=== PATIENT | female | born 1955 | race Caucasian/White ===

== ENCOUNTER → 2017-01-02 | Outpatient (CLI) | payer OTHER ==
--- NOTE | 2017-01-02 12:54 | XR ---
EXAMINATION TYPE: XR ankle complete RT DATE OF EXAM: 01/02/2017 12:16 PM CLINICAL HISTORY: Twisting fall injury one week ago with pain swelling and bruising along lateral asp ect at time of injury and persistent pain now. TECHNIQUE: Frontal, lateral and oblique images of the right ankle are obtained. COMPARISON: None. FINDINGS: There is no acute fracture/dislocation evident in the right ankle. The ankle mortise appe ars within normal limits. The overlying soft tissue appears unremarkable. IMPRESSION: There is no acute fracture or dislocation in the right ankle.
== END | disposition home or self-care (01) ==
LOC: RADXRMAIN 11:48
PROVIDERS: ATTEND Family Medicine
DX: M25.571 Pain in right ankle and joints of right foot (principal)

== ENCOUNTER 2017-08-18 21:30 | Emergency (ER) | payer OTHER ==
[2017-08-18 21:39] VITALS: RESP 18; TEMP 97.4
--- NOTE | 2017-08-18 21:52 | ED ---
General Adult HPI - General Chief complaint: Extremity Problem,Nontraumatic Stated complaint: Foot Pain Time Seen by Provider: 08/18/17 21:42 Source: patient, RN notes reviewed Mode of arrival: wheelchair Limitations: no limitations - History of Present Illness Initial comments: 62 yo female presents to the ER with cc of left foot pain. Patient states her left foot has been bothering her for the last week or so. Patient states that she stepped out of her today and she felt staff. Patient states that her toes and between the first and second digit. Patient states that she has no other pain with this. She has no small cyst on her foot as well. Patient denies any falls traumas or injuries. She states she has never had walker. Patient was concerned due to her symptoms so she thought that she should be evaluated. Patient denies any recent fever, chills, shortness of breath, chest pain, back pain, abdominal pain, nausea vomiting, numbness or tingling, dysuria or hematuria, constipation or diarrhea, headaches or visual changes, or any other current symptoms. - Related Data Home Medications Medication Instructions Recorded Confirmed No Known Home Medications [No 08/18/17 08/18/17 Known Home Medications] Allergies Allergy/AdvReac Type Severity Reaction Status Date / Time Penicillins Allergy Rash/Hives Verified 08/18/17 21:39 Sulfa (Sulfonamide Allergy Rash/Hives Verified 08/18/17 21:39 Antibiotics) Review of Systems ROS Statement: Those systems with pertinent positive or pertinent negative responses have been documented in the HPI. ROS Other: All systems not noted in ROS Statement are negative. Past Medical History Past Medical History: No Reported History History of Any Multi-Drug Resistant Organisms: None Reported Past Surgical History: Appendectomy, Hysterectomy, Tonsillectomy Past Psychological History: No Psychological Hx Reported Smoking Status: Never smoker Past Alcohol Use History: Rare Past Drug Use History: None Reported General Exam - General Exam Comments Initial Comments: General: The patient is awake and alert, in no distress, and does not appear acutely ill. Neck: The neck is supple, there is no tenderness. Cardiovascular: There is a regular rate and rhythm. No murmur, rub or gallop is appreciated. Respiratory: Lungs are clear to auscultation, respirations are non-labored, breath sounds are equal. No wheezes, stridor, rales, or rhonchi. Musculoskeletal: Sensation intact with 2+ pulses throughout the left flexion. Frontal motion of left foot. Tenderness between the first and second digit. There is a small cyst to the bottom of left foot. No swelling or deformity noted. Neurological: CN II-XII intact, There are no obvious motor or sensory deficits. Coordination appears grossly intact. Speech is normal. Skin: Skin is warm and dry and no rashes or lesions are noted. Psychiatric: Normal mood and affect. Limitations: no limitations Course Vital Signs 08/18/17 21:35 Temperature 97.4 F L Pulse Rate 101 H Respiratory 18 Rate Blood Pressure 188/85 O2 Sat by Pulse 100 Oximetry Medical Decision Making - Medical Decision Making 62-year-old female presents for left foot injury. This time x-ray results are reviewed. At this time we did discuss care of this. Discussed follow-up. Return parameters outpatient family's questions. They stated the Henrry management plan. All questions have been answered. They'll be discharged. - Radiology Data Radiology results: report reviewed, image reviewed Disposition Clinical Impression: Left foot pain Disposition: HOME SELF-CARE Condition: Stable Instructions: Arthralgia (ED) Additional Instructions: Please use medication as discussed. Please follow up with family doctor if symptoms have not improved over the next two days. Please return to the emergency room if your symptoms increase or worsen or for any other concerns. Referrals: Champ Syed DO [Primary Care Provider] - 1-2 days Eric Dunn MD [Medical Doctor] - 1-2 days Time of Disposition: 22:21
--- NOTE | 2017-08-18 22:02 | XR ---
EXAMINATION TYPE: XR foot complete LT DATE OF EXAM: 08/18/2017 CLINICAL HISTORY: Left foot pain, history of stress fracture. TECHNIQUE: Frontal, lateral, and oblique images of the left foot are obtained. COMPARISON: None FINDINGS: There is no acute fracture/dislocation evident in the left foot. Osseous structures are so mewhat demineralized. Some flexion in second through fifth toes is present. There is hallux valgus po sitioning first metatarsophalangeal joint. The overlying soft tissue appears unremarkable. IMPRESSION: There is no acute fracture or dislocation in the left foot.
[2017-08-18 22:26] VITALS: BP 170/79; PULSE 96
== END 2017-08-18 22:26 | disposition home or self-care (01) ==
LOC: EC 21:30
DX: M79.672 Pain in left foot (principal); Z88.0 Allergy status to penicillin; Z88.2 Allergy status to sulfonamides
CPT/HCPCS: 99283

== ENCOUNTER → 2017-12-24 | Outpatient (CLI) | payer OTHER ==
--- NOTE | 2017-12-24 10:41 | BD ---
EXAMINATION TYPE: MG DEXA axial skeleton. DATE OF EXAM: 12/24/2017 COMPARISON: Prior DEXA bone scan March 28, 2015 CLINICAL HISTORY: Postmenopausal female with known osteopenia Height: 67 Weight: 146.3 FRAX RISK QUESTIONS: Alcohol (3 or more units per day): no Family History (Parent hip fracture): no Glucocorticoids (More than 3mos): no (Ex: prednisone, prednisolone, methylprednisolone, dexamethasone, and hydrocortisone). History of Fracture in Adulthood: no Secondary Osteoporosis: 1. Type 1 Diabetes: no 2. Hyperthyroidism: no 3. Menopause before 45: no 4. Malnutrition: no 5. Chronic liver disease: no Rheumatoid Arthritis: no Current Tobacco Use: no RISK FACTORS HISTORY OF: Surgery to Spine/Hip(right/left)/Wrist (right/left): no Family History of Osteoporosis: yes Active: yes Diet low in dairy products/other sources of calcium: no Postmenopausal woman: hysterectomy age 48 Lost more than 2 inches in height since high school: no Frequent falls: no Poor Health: no Hyperparathyroidism: no Adrenal Insufficiency: no MEDICATIONS: beta lilli Additional History: EXAM MEASUREMENTS: Bone mineral densitometry was performed using the [employer] System. Bone mineral density as measured about the Lumbar spine is: ----- L1-L4(G/cm2): 1.095 T Score Values are as follows: ----- L2: -1.1 ----- L3: -0.6 ----- L4: -0.2 ----- L1-L4: -0.7 Bone mineral density has: increased 1.6% since study of: 03.28.2015 Bone mineral density about the R hip (g/cm2): 0.912 Bone mineral density about the L hip (g/cm2): 0.856 T Score values are as follows: -----R Neck: -0.9 -----L Neck: -1.3 -----R Total: -1.2 -----L Total: -1.2 Bone mineral density has: decreased -1.3 % since study of: 03.28.2015 IMPRESSION: Osteopenia (T Score between -2.5 and -1 as noted by T score values persists in both hips. Bone densit y fairly stable from prior. There remains slightly increased risk of fracture and the patient may be considered for treatment. Re-Screen 2-5 years. NOTE: T-SCORE=SD OF THE YOUNG ADULT MEAN.
--- NOTE | 2017-12-25 09:16 | MM ---
Reason for exam: screening (asymptomatic). Last mammogram was performed 2 years and 9 months ago. History: Patient is postmenopausal. Family history of breast cancer in paternal aunt. Benign excisional biopsy of the left breast, 1998. Took estrogen for 2 years beginning at age 48. Physical Findings: A clinical breast exam by your physician is recommended on an annual basis and results should be correlated with mammographic findings. MG 3D Screening Mammo W/Cad Bilateral CC and MLO view(s) were taken. Prior study comparison: March 28, 2015, bilateral MG screening mammo w CAD. July 07, 2013, bilateral digital screening mammo w/CAD. The breast tissue is heterogeneously dense. This may lower the sensitivity of mammography. There is no discrete abnormality. No significant changes when compared with prior studies. ASSESSMENT: Negative, BI-RAD 1 RECOMMENDATION: Routine screening mammogram of both breasts in 1 year.
== END | disposition home or self-care (01) ==
LOC: RADMAMWWP 09:31
PROVIDERS: ATTEND Family Medicine
DX: Z12.31 Encounter for screening mammogram for malignant neoplasm of breast (principal); M85.852 Other specified disorders of bone density and structure, left thigh; M85.851 Other specified disorders of bone density and structure, right thigh
CPT/HCPCS: 77063; 77067; 77080

== ENCOUNTER 2018-02-05 09:31 | Day surgery (SDC) | payer OTHER ==
[2018-02-03 09:09] VITALS: BMI 23.1
[~2018-02-05 09:31] MED LIST: LACTATED RINGERS 1,000 ML IV SCH
[2018-02-05 10:42] VITALS: TEMP 97.6
[2018-02-05] MEDS ORDERED: MIDAZOLAM 2 MG/2 ML VIAL IVP ONE (11:05)
[2018-02-05] MEDS ORDERED: LIDOCAINE 1% INJ 10MG/ML (20 ML MDV) ONE (11:25)
[2018-02-05] MEDS ORDERED: PROPOFOL 10 MG/ML 20 ML VIAL IV ONE (11:25)
--- NOTE | 2018-02-05 11:45 | P.PCN ---
Date of Procedure: 02/05/18 Procedure(s) Performed: BRIEF HISTORY: Patient is a 62-year-old pleasant white female, scheduled for an elective colonoscopy as a part of screening for colon neoplasia. She has family history of colon cancer diagnosed in her brother at age 50 and maternal aunt. PROCEDURE PERFORMED: Colonoscopy with snare polypectomy. PREOPERATIVE DIAGNOSIS: Screening for colon cancer/family history of colon cancer. IV sedation per Anesthesia. PROCEDURE: After informed consent was obtained, the patient, was brought into the endoscopy unit. IV sedation was administered by Anesthesia under continuous monitoring. Digital rectal examination was normal. Initially the Olympus CF- 160 flexible video colonoscope was then inserted in the rectum, gradually advanced into the cecum without any difficulty. Careful examination was performed as the scope was gradually being withdrawn. Ileocecal valve and the appendiceal orifice were visualized and appeared normal. Prep was excellent. Mucosa of the cecum, ascending colon, appeared normal. In the proximal transverse colon there was a 1 m flat polyp that was removed by snare polypectomy. The rest of the transverse colon, descending colon, sigmoid colon , and rectum appeared normal. Retroflexion was performed in the rectum and no lesions were seen. The patient tolerated the procedure well. IMPRESSION: 1 cm flat proximal transverse colon polyp status post polypectomy Rest of the colon appeared normal. RECOMMENDATIONS: Findings of this examination were discussed with the patient as well as her family. She was advised to follow with the biopsy results and have a repeat surveillance colonoscopy in 3-5 yearsto the biopsy results.
[2018-02-05 12:17] VITALS: BP 135/78; PULSE 77; RESP 18
== END 2018-02-05 12:30 | disposition home or self-care (01) ==
LOC: ORWHC2ENDO 09:31
PROVIDERS: ATTEND Internal Medicine Gastroenterology
DX: Z12.11 Encounter for screening for malignant neoplasm of colon (principal); K63.5 Polyp of colon; Z80.0 Family history of malignant neoplasm of digestive organs; I10 Essential (primary) hypertension; E78.5 Hyperlipidemia, unspecified; E07.9 Disorder of thyroid, unspecified; G43.909 Migraine, unspecified, not intractable, without status migrainosus; Z79.899 Other long term (current) drug therapy; Z79.82 Long term (current) use of aspirin; Z88.0 Allergy status to penicillin; Z88.2 Allergy status to sulfonamides; Z88.3 Allergy status to other anti-infective agents; Z91.041 Radiographic dye allergy status
CPT/HCPCS: 88305; 45385; J2250; J2001; J2704

== ENCOUNTER → 2019-08-24 | Outpatient (CLI) | payer OTHER ==
--- NOTE | 2019-08-24 13:29 | USB ---
Reason for exam: clinical finding. History: Patient is postmenopausal. Family history of breast cancer in paternal aunt. Benign excisional biopsy of the left breast, 1998. Took estrogen for 2 years beginning at age 48. Physical Findings: Nurse did not find any significant physical abnormalities on exam. US Breast RT Right complete breast ultrasound includes all four quadrants, the retroareolar region and axilla. Finding demonstrates duct prominence at the posterior nipple and a 11mm oval lymph node at the axilla, mostly hyperechoic with no cortical thickening. Likely reactive due to the recent treated mastitis. These results were verbally communicated with the patient and result sheet given to the patient on 08/24/19. ASSESSMENT: Probably benign, BI-RAD 3 RECOMMENDATION: Ultrasound of the right breast in 3 months. (axilla, reassess lymph node)
== END | disposition home or self-care (01) ==
LOC: RADUSWWP 08:20
PROVIDERS: ATTEND Family Medicine
DX: N64.52 Nipple discharge (principal)

== ENCOUNTER → 2020-05-30 | Outpatient (CLI) | payer BC, OTHER ==
--- NOTE | 2020-05-30 14:43 | MM ---
Reason for exam: additional evaluation requested from prior study. Last mammogram was performed 1 year and 4 months ago. History: Patient is postmenopausal. Family history of breast cancer in paternal aunt. Benign excisional biopsy of the left breast, 1998. Took estrogen for 2 years beginning at age 48. Physical Findings: Nurse did not find any significant physical abnormalities on exam. MG Diagnostic Mammo w CAD ARPIT Bilateral CC and MLO view(s) were taken. Prior study comparison: February 10, 2019, bilateral MG screening mammo w CAD. December 24, 2017, bilateral MG 3d screening mammo w/cad. The breast tissue is heterogeneously dense. This may lower the sensitivity of mammography. There is no discrete abnormality including area of concern. No significant new findings when compared with previous films. These results were verbally communicated with the patient and result sheet given to the patient on 05/30/20. ASSESSMENT: Incomplete: need additional imaging evaluation, BI-RAD 0 RECOMMENDATION: Ultrasound of the right breast.
--- NOTE | 2020-05-30 14:44 | USB ---
Reason for exam: additional evaluation requested from abnormal screening. History: Patient is postmenopausal. Family history of breast cancer in paternal aunt. Benign excisional biopsy of the left breast, 1998. Took estrogen for 2 years beginning at age 48. US Breast RT Right complete breast ultrasound includes all four quadrants, the retroareolar region and axilla. Finding demonstrates duct ectasia at the posterior nipple. These results were verbally communicated with the patient and result sheet given to the patient on 05/30/20. ASSESSMENT: Benign, BI-RAD 2 RECOMMENDATION: Routine screening mammogram of both breasts in 1 year. Manage patient on a clinical basis.
== END | disposition home or self-care (01) ==
LOC: RADMAMWWP 13:40
PROVIDERS: ATTEND Family Medicine
DX: Z01.818 Encounter for other preprocedural examination (principal); R92.8 Other abnormal and inconclusive findings on diagnostic imaging of breast
CPT/HCPCS: 77066